=== PATIENT | female | born 1940 | race Caucasian/White ===

== ENCOUNTER 2020-05-14 02:00 | Emergency (ER) | payer MEDICARE, OTHER ==
[~2020-05-14] VITALS: Ht 165.1 cm; Wt 71.5 kg
--- NOTE | 2020-05-14 02:08 | NUR ---
This RN contacted Catherine at the [facility] [place] for report. She stated the pt contacted her saying she wasnt "feeling well". She assessed the pt stating she was pale, cool and clammy with c/o dizziness. Upon taking her vital signs she obtained a 202/104 pressure.
--- NOTE | 2020-05-14 02:12 | ED General ---
General Stated Complaint: HIGH BLOOD PRESSURE Source of Information: Patient, EMS, [facility] Records, RN/MD Exam Limitations: No Limitations History of Present Illness Date Seen by Provider: May 14, 2020 Time Seen by Provider: 02:00 Initial Comments This patient is a 67-year-old female presents to the emerge department from EMS [facility] jail with complaint of high blood pressure. Patient states that she has no complaints. Patient states that she was laying in the bed but is having a hard time sleeping. EMS reports that they got a call stating the patient at high blood pressure. EMS reportedly had checked the patient's blood pressure twice and got 150s over 80s both times. Patient has normal blood pressures for her stated history and age. Patient was presented to the emergency department blood pressures again stable and similar range 156/63. Patient has no complaints of pain and no complaints of anything other than the fact that she stated she just was having a hard time going to sleep. We did discuss at length with options patient is a negative medical screening exam for any acute complaint. Nursing staff will call jail to ask the patient has any sleep aids to assist with going sleep for her MAR. Patient has no complaints she was offered a medical screening exam but declines because she has no complaints. Patient be transported back to the long term per her request. Associated Systoms: Denies Symptoms Allergies and Home Medications Patient Home Medication List Home Medication List Reviewed: Yes Review of Systems Review of Systems Constitutional: see HPI EENTM: No see HPI, No no symptoms reported, No ear discharge, No hearing loss, No ear pain, No blurred vision, No double vision, No eye pain, No tearing, No vision loss, No dental problems, No hoarseness, No mouth pain, No mouth swelling, No epistaxis, No nose congestion, No nose pain, No throat pain, No throat swelling, No other Respiratory: No no symptoms reported, No see HPI, No cough, No dyspnea on exertion, No hemoptysis, No orthopnea, No phlegm, No short of breath, No stridor, No wheezing, No other Cardiovascular: No no symptoms reported, No see HPI, No chest pain, No edema, No Hx of Intervention, No palpitations, No syncope, No vascular heart diseas, No other Gastrointestinal: No RUQ, No LUQ, No RLQ, No LLQ, No no symptoms reported, No see HPI, No abdominal pain, No constipation, No diarrhea, No dysphagia, No hematemesis, No heartburn, No jaundice, No loss of appetite, No melena, No nausea, No vomiting, No other Genitourinary: No no symptoms reported, No see HPI, No decreased output, No discharge, No dysuria, No frequency, No hematuria, No hesitancy, No incontinence, No nocturia, No pain, No other Musculoskeletal: No no symptoms reported, No see HPI, No back pain, No gout, No joint pain, No joint swelling, No muscle pain, No muscle stiffness, No muscle cramps, No muscle twitching, No muscle weakness, No neck pain, No other Skin: No no symptoms reported, No see HPI, No change in color, No change in alfonso ir/nails, No dryness, No hx of skin cancer, No lesions, No lumps, No pruritus, No rash, No other Psychiatric/Neurological: Denies No Symptoms Reported, Denies See HPI, Denies Anxiety, Denies Depressed, Denies Emotional Problems, Denies Headache, Denies Numbness, Denies Paresthesia, Denies Pre-Existing Deficit, Denies Seizure, Denies Tingling, Denies Tremors, Denies Weakness, Denies Other Hematologic/Lymphatic: Denies No Symptoms Reported, Denies See HPI, Denies An emia, Denies Blood Clots, Denies Easy Bleeding, Denies Easy Bruising, Denies Swollen Glands, Denies Other Immunological/Allergic: denies no symptoms reported, denies see HPI, denies food allergy, denies grass allergy, denies mold allergy, denies pollen allergy, denies HIV/AIDS, denies transplant All Other Systems Reviewed Negative Unless Noted: Yes Physical Exam Vital Signs Capillary Refill : Height, Weight, BMI Height: '" Weight: lbs. oz. kg; BMI Method: General Appearance: No Apparent Distress, WD/WN Respiratory: Chest Non Tender, Lungs Clear, Normal Breath Sounds, No Accessory Muscle Use, No Respiratory Distress Cardiovascular: Regular Rate, Rhythm, No Edema, No Gallop, No JVD, No Murmur, Normal Peripheral Pulses Gastrointestinal: Normal Bowel Sounds, No Organomegaly, No Pulsatile Mass, Non Tender, Soft Neurologic/Psychiatric: Alert, Oriented x3, No Motor/Sensory Deficits, Normal Mood/Affect Progress/Results/Core Measures Suspected Sepsis SIRS Temperature: Pulse: Respiratory Rate: Blood Pressure / Mean: Results/Orders Vital Signs/I&O Capillary Refill : Progress Note : Time: 02:09 Progress Note Negative evaluation in the emergency Department patient has no complaints. Vital signs patient's blood pressure is 157/68 pulse 66 this is normal for the patient on arrival. After monitoring the patient's blood pressure went down to 142/69.. Patient's only complaint in the emergency department states she was having problems sleeping. Patient MEDICAL screening exam but declined states that she has no complaints. Patient does have a history of dementia. Myself and nursing staff did discuss at length with patient's family members. They agreed to have no further medical screening exam in the emergency department. They were advised the patient stated that she had complained sleeping tonight and they did request that we give her a Benadryl prior to sending back to the jail to help her sleep. We did review patient's medications. Patient does take trazodone and melatonin according to her medical records. But unknown if the patient has at least. Patient will be discharged back to the jail per her and family request. long term to continue patient's medications as scheduled. Follow-up with primary care physician or jail physician in one to 2 days as needed. Departure Impression Primary Impression: Encounter for medical screening examination Disposition: HOME, SELF-CARE Condition: Stable Departure-Patient Inst. Decision time for Depature: 02:15 Add. Discharge Instructions: long term to continue patient's medications as scheduled. Follow-up with primary care physician or jail physician in one to 2 days as needed. MONICA VARMA MD May 14, 2020 02:11
--- NOTE | 2020-05-14 02:15 | NUR ---
This RN contacted Neftali, the pts son. Update given on the pt. He denies wanting any medical workup on the pt including bloodwork since the pt has no complaints. Pt did state she was having trouble sleeping and that was relayed to Neftali. Dr. Lindsey offered Benedryl as sleep aid. Neftali stated that would be great.
--- NOTE | 2020-05-14 02:21 | NUR ---
This RN contacted Catherine at nursing facility again stating what [place] wishes were and that the pt would need transport back home. She stated she would send someone for transport home.
[2020-05-14] MEDS ORDERED: diphenhydrAMINE 25 MG TAB (BENADRYL) PO ONE (02:30)
--- NOTE | 2020-05-14 02:37 | NUR ---
Pt transport here to [facility] the pt.
[2020-05-14 02:42] VITALS: BP 157/68
== END 2020-05-14 02:42 | disposition home or self-care (01) ==
LOC: EDBD 02:00 → ER FS 02:00
DX: Z03.89 Encounter for observation for other suspected diseases and conditions ruled out (principal)
CPT/HCPCS: 99283

== ENCOUNTER 2020-05-14 20:49 | Emergency (ER) | payer MEDICARE, OTHER ==
[~2020-05-14] VITALS: Ht 165.1 cm; Wt 70.0 kg
--- NOTE | 2020-05-14 21:03 | ED Cardiac General ---
History of Present Illness General Chief Complaint: Cardiac/General Problems Stated Complaint: HYPERTENSION Nursing Triage Note: Patient was seen in the ER last night for the same complaint. Patients medications were changed today by her physician. Patients vitals were taken and it was reported that her blood pressure was high. Patient is brought in via EMS. Patient has a 20g in her right AC and was given 4mg of Zofran. Patient has no complaints at this time. Source: patient, EMS Exam Limitations: no limitations History of Present Illness Date Seen by Provider: May 14, 2020 Time Seen by Provider: 20:50 Initial Comments The patient is an 79-year-old female who presents for evaluation of hypertension. She was in this emergency department last night for the same complaint and she had a change made to her blood pressure medications. She states that she has felt fatigued for 3 or 4 days. She was slightly nauseated and EMS gave her some Zofran prior to arrival and now she has no complaints. Her blood pressure upon arrival is 158/97. She is alert and oriented 4, calm, and appears to be in no distress this time. Severity: mild Associated Systoms: Nausea/Vomiting (mild nausea, resolved) Allergies and Home Medications Allergies Coded Allergies: No Known Drug Allergies (Unverified , 05/14/20) Patient Home Medication List Home Medication List Reviewed: Yes Review of Systems Review of Systems Constitutional: no symptoms reported EENTM: No Symptoms Reported Respiratory: No Symptoms Reported Cardiovascular: No Symptoms Reported Gastrointestinal: Nausea Genitourinary: No Symptoms Reported Musculoskeletal: no symptoms reported Skin: no symptoms reported Psychiatric/Neurological: No Symptoms Reported Endocrine: No Symptoms Reported Hematologic/Lymphatic: No Symptoms Reported All Other Systems Reviewed Negative Unless Noted: Yes Past Ltcucwa-Rzfvjw-Bqhnqv Hx Past Med/Social Hx: Reviewed Nursing Past Med/Soc Hx Patient Social History 2nd Hand Smoke Exposure: No Recent Foreign Travel: No Contact w/Someone Who Travel: No Recent Infectious Disease Expo: No Recent Hopitalizations: No Seasonal Allergies Seasonal Allergies: No Past Medical History Surgeries: No Respiratory: No Cardiac: No Neurological: No Genitourinary: No Gastrointestinal: No Musculoskeletal: No Endocrine: No HEENT: No Cancer: No Psychosocial: No Integumentary: No Blood Disorders: No Physical Exam Vital Signs Vital Signs - First Documented 05/14/20 20:54 Temp 36.8 Pulse 72 Resp 18 B/P (MAP) 158/76 (103) Pulse Ox 100 O2 Delivery Room Air Capillary Refill : Less Than 3 Seconds Height, Weight, BMI Height: '" Weight: lbs. oz. kg; 25.00 BMI Method: General Appearance: No Apparent Distress, WD/WN HEENT: PERRL/EOMI, Normal ENT Inspection Neck: Full Range of Motion, Normal Inspection, Non Tender, Supple Respiratory: Lungs Clear, Normal Breath Sounds, No Respiratory Distress Cardiovascular: Regular Rate, Rhythm, No Edema, No JVD, No Murmur Gastrointestinal: Normal Bowel Sounds, Non Tender, Soft Extremity: Normal Capillary Refill, Normal Inspection, Normal Range of Motion, Non Tender Neurologic/Psychiatric: Alert, Oriented x3, No Motor/Sensory Deficits, Normal Mood/Affect Skin: Normal Color, Warm/Dry Progress/Results/Core Measures Results/Orders Lab Results Laboratory Tests Test 05/14/20 21:16 Range/Units White Blood Count 8.5 4.3-11.0 10^3/uL Red Blood Count 4.55 4.35-5.85 10^6/uL Hemoglobin 13.8 11.5-16.0 G/DL Hematocrit 41 35-52 % Mean Corpuscular Volume 89 80-99 FL Mean Corpuscular Hemoglobin 30 25-34 PG Mean Corpuscular Hemoglobin Concent 34 32-36 G/DL Red Cell Distribution Width 12.7 10.0-14.5 % Platelet Count 209 130-400 10^3/uL Mean Platelet Volume 9.9 7.4-10.4 FL Neutrophils (%) (Auto) 81 H 42-75 % Lymphocytes (%) (Auto) 13 12-44 % Monocytes (%) (Auto) 5 0-12 % Eosinophils (%) (Auto) 1 0-10 % Basophils (%) (Auto) 0 0-10 % Neutrophils # (Auto) 6.9 1.8-7.8 X 10^3 Lymphocytes # (Auto) 1.1 1.0-4.0 X 10^3 Monocytes # (Auto) 0.5 0.0-1.0 X 10^3 Eosinophils # (Auto) 0.1 0.0-0.3 10^3/uL Basophils # (Auto) 0.0 0.0-0.1 10^3/uL Sodium Level 139 135-145 MMOL/L Potassium Level 3.7 3.6-5.0 MMOL/L Chloride Level 103 98-107 MMOL/L Carbon Dioxide Level 23 21-32 MMOL/L Anion Gap 13 5-14 MMOL/L Blood Urea Nitrogen 12 7-18 MG/DL Creatinine 0.73 0.60-1.30 MG/DL Estimat Glomerular Filtration Rate > 60 BUN/Creatinine Ratio 16 Glucose Level 153 H 70-105 MG/DL Calcium Level 9.8 8.5-10.1 MG/DL Corrected Calcium 9.7 8.5-10.1 MG/DL Total Bilirubin 0.3 0.1-1.0 MG/DL Aspartate Amino Transf (AST/SGOT) 30 5-34 U/L Alanine Aminotransferase (ALT/SGPT) 24 0-55 U/L Alkaline Phosphatase 119 40-136 U/L Troponin I < 0.30 <0.30 NG/ML Pro-B-Type Natriuretic Peptide 876.2 H <75.0 PG/ML Total Protein 7.0 6.4-8.2 GM/DL Albumin 4.1 3.2-4.5 GM/DL My Orders Orders - SARA SOLARES DO Ekg Tracing (05/14/20 20:57) Cbc With Automated Diff (05/14/20 21:10) Comprehensive Metabolic Panel (05/14/20 21:10) Troponin I Fs (05/14/20 21:10) Probnp Fs (05/14/20 21:10) Vital Signs/I&O 05/14/20 20:54 Temp 36.8 Pulse 72 Resp 18 B/P (MAP) 158/76 (103) Pulse Ox 100 O2 Delivery Room Air Blood Pressure Mean: 103 Progress Progress Note : Progress Note @2158 - patient updated on lab results which are acutely unremarkable. The patient's blood pressure is not at a dangerous level currently. Advised her to follow up with her PCP in the next 1-2 days and to return to the emergency Department immediately for new or worsening symptoms. The patient expresses verbal understanding and agreement with the plan and is stable for discharge. Comment @2101 - normal sinus rhythm, rate of 65, left axis deviation, no acute ischemic findings noted, no STEMI, reviewed and interpreted by myself Departure Impression Primary Impression: Hypertension Disposition: 01 HOME, SELF-CARE Condition: Stable Departure-Patient Inst. Decision time for Depature: 21:59 Referrals: SELF,REINA JOYCE (PCP/Family) Primary Care Physician Patient Instructions: High Blood Pressure in Adults Add. Discharge Instructions: Continue to take your home medications as directed. Follow-up with your doctor tomorrow. Return to the emergency Department immediately for new or worsening symptoms. SARA SOLARES DO May 14, 2020 21:03
[2020-05-14 21:23] LABS: HEMATOCRIT 41 % (35-52); HEMOGLOBIN 13.8 G/DL (11.5-16.0); MEAN CORPUSCULAR HEMOGLOBIN 30 PG (25-34); MEAN CORPUSCULAR HGB CONC 34 G/DL (32-36); MEAN CORPUSCULAR VOLUME 89 FL (80-99); PLATELET COUNT 209 10^3/uL (130-400); WHITE BLOOD COUNT 8.5 10^3/uL (4.3-11.0)
[2020-05-14 21:24] LABS: BASOPHILS % (AUTO) 0 % (0-10); EOSINOPHILS # (AUTO) 0.1 10^3/uL (0.0-0.3); EOSINOPHILS % (AUTO) 1 % (0-10); LYMPHOCYTES # (AUTO) 1.1 X 10^3 (1.0-4.0); LYMPHOCYTES % (AUTO) 13 % (12-44); MEAN PLATELET VOLUME 9.9 FL (7.4-10.4); MONOCYTES # (AUTO) 0.5 X 10^3 (0.0-1.0); MONOCYTES % (AUTO) 5 % (0-12); NEUTROPHILS # (AUTO) 6.9 X 10^3 (1.8-7.8); NEUTROPHILS % (AUTO) 81 % (42-75)
[2020-05-14 21:54] LABS: ALANINE AMINOTRANSFERASE 24 U/L (0-55); ALKALINE PHOSPHATASE 119 U/L (40-136); BILIRUBIN,TOTAL 0.3 MG/DL (0.1-1.0); BUN/CREATININE RATIO 16; CALCIUM 9.8 MG/DL (8.5-10.1); CARBON DIOXIDE 23 MMOL/L (21-32); CHLORIDE 103 MMOL/L (98-107); CREATININE SERUM 0.73 MG/DL (0.60-1.30); GFR ESTIMATED > 60; GLUCOSE 153 MG/DL (70-105); POTASSIUM 3.7 MMOL/L (3.6-5.0); SODIUM 139 MMOL/L (135-145)
[2020-05-14 21:55] LABS: ALBUMIN 4.1 GM/DL (3.2-4.5)
[2020-05-14 22:03] VITALS: BP 156/76
== END 2020-05-14 22:03 | disposition home or self-care (01) ==
LOC: EDUNIT# 20:49 → ER FS 20:50
DX: I10 Essential (primary) hypertension (principal)
CPT/HCPCS: 36415; 80053; 83880; 84484; 85025; 93005

== ENCOUNTER 2022-03-06 12:56 | Emergency (ER) | payer MEDICARE ==
[~2022-03-06] VITALS: Ht 165.1 cm; Wt 68.0 kg
--- NOTE | 2022-03-06 13:00 | ED General ---
General Stated Complaint: SHOULDER PAIN History of Present Illness Date Seen by Provider: Mar 06, 2022 Time Seen by Provider: 13:00 Initial Comments 81-year-old female sent in from [facility]. Patient had a unwitnessed fall. She complains of some minor shoulder pain but no other complaints. Patient does not remember what happened. Patient is unsure if she hit her head. Patient has known history of dementia and memory issues and difficult to obtain any further HPI. This resulted very limited HPI Allergies and Home Medications Allergies Coded Allergies: No Known Drug Allergies (Unverified , 05/14/20) Patient Home Medication List Home Medication List Reviewed: Yes Review of Systems Review of Systems Constitutional: no symptoms reported EENTM: no symptoms reported Respiratory: no symptoms reported Cardiovascular: no symptoms reported Genitourinary: no symptoms reported Musculoskeletal: see HPI Skin: no symptoms reported Psychiatric/Neurological: No Symptoms Reported Past Boawhwd-Qvllgo-Mtehoa Hx Seasonal Allergies Seasonal Allergies: No Past Medical History Surgeries: No Respiratory: No Cardiac: No Neurological: No Genitourinary: No Gastrointestinal: No Musculoskeletal: No Endocrine: No HEENT: No Cancer: No Psychosocial: No Integumentary: No Blood Disorders: No Physical Exam Vital Signs Vital Signs - First Documented 03/06/22 12:56 Temp 36.1 Pulse 67 Resp 17 B/P (MAP) 155/67 (96) O2 Delivery Room Air Capillary Refill : Height, Weight, BMI Height: '" Weight: lbs. oz. kg; 25.00 BMI Method: General Appearance: No Apparent Distress, WD/WN HEENT: PERRL/EOMI, Normal ENT Inspection Neck: Normal Inspection, Non Tender Respiratory: Lungs Clear Cardiovascular: Regular Rate, Rhythm, No Edema Gastrointestinal: Non Tender, Soft Extremity: Normal Capillary Refill, Normal Inspection, Normal Range of Motion, Non Tender Neurologic/Psychiatric: Alert, No Motor/Sensory Deficits, Normal Mood/Affect, buffet runner II-XII Norm as Tested, Other (Orientated to name, age. Unsure of place and why she is here) Progress/Results/Core Measures Suspected Sepsis SIRS Temperature: Pulse: Respiratory Rate: Laboratory Tests 03/06/22 13:00: White Blood Count 7.0 Blood Pressure / Mean: Laboratory Tests 03/06/22 13:00: Creatinine 0.80, Platelet Count 134, Total Bilirubin 0.4 Results/Orders Lab Results Laboratory Tests Test 03/06/22 13:00 03/06/22 14:02 Range/Units White Blood Count 7.0 4.3-11.0 10^3/uL Red Blood Count 4.11 3.80-5.11 10^6/uL Hemoglobin 12.4 11.5-16.0 g/dL Hematocrit 38 35-52 % Mean Corpuscular Volume 93 80-99 fL Mean Corpuscular Hemoglobin 30 25-34 pg Mean Corpuscular Hemoglobin Concent 33 32-36 g/dL Red Cell Distribution Width 12.8 10.0-14.5 % Platelet Count 134 130-400 10^3/uL Mean Platelet Volume 10.3 9.0-12.2 fL Immature Granulocyte % (Auto) 0 % Neutrophils (%) (Auto) 70 42-75 % Lymphocytes (%) (Auto) 19 12-44 % Monocytes (%) (Auto) 6 0-12 % Eosinophils (%) (Auto) 4 0-10 % Basophils (%) (Auto) 0 0-10 % Neutrophils # (Auto) 4.9 1.8-7.8 10^3/uL Lymphocytes # (Auto) 1.4 1.0-4.0 10^3/uL Monocytes # (Auto) 0.4 0.0-1.0 10^3/uL Eosinophils # (Auto) 0.3 0.0-0.3 10^3/uL Basophils # (Auto) 0.0 0.0-0.1 10^3/uL Immature Granulocyte # (Auto) 0.0 0.0-0.1 10^3/uL Sodium Level 140 135-145 MMOL/L Potassium Level 4.0 3.6-5.0 MMOL/L Chloride Level 105 98-107 MMOL/L Carbon Dioxide Level 22 21-32 MMOL/L Anion Gap 13 5-14 MMOL/L Blood Urea Nitrogen 18 7-18 MG/DL Creatinine 0.80 0.60-1.30 MG/DL Estimat Glomerular Filtration Rate 73 BUN/Creatinine Ratio 23 Glucose Level 167 H 70-105 MG/DL Calcium Level 9.1 8.5-10.1 MG/DL Corrected Calcium 9.2 8.5-10.1 MG/DL Total Bilirubin 0.4 0.1-1.0 MG/DL Aspartate Amino Transf (AST/SGOT) 22 5-34 U/L Alanine Aminotransferase (ALT/SGPT) 12 0-55 U/L Alkaline Phosphatase 93 40-136 U/L Troponin I < 0.30 <0.30 NG/ML Total Protein 6.3 L 6.4-8.2 GM/DL Albumin 3.9 3.2-4.5 GM/DL Urine Color YELLOW Urine Clarity CLOUDY Urine pH 7.5 5-9 Urine Specific [place] 1.020 1.016-1.022 Urine Protein NEGATIVE NEGATIVE Urine Glucose (UA) NEGATIVE NEGATIVE Urine Ketones 1+ H NEGATIVE Urine Nitrite NEGATIVE NEGATIVE Urine Bilirubin NEGATIVE NEGATIVE Urine Urobilinogen 0.2 < = 1.0 MG/DL Urine Leukocyte Esterase TRACE H NEGATIVE Urine RBC (Auto) NEGATIVE NEGATIVE Urine RBC NONE /HPF Urine WBC 25-50 H /HPF Urine Squamous Epithelial Cells 5-10 /HPF Urine Crystals NONE /LPF Urine Bacteria LARGE H /HPF Urine Casts NONE /LPF Urine Mucus NEGATIVE /LPF Urine Culture Indicated YES My Orders Orders - CISSE,BAN L DO Ct Head Wo (03/06/22 13:03) Cbc With Automated Diff (03/06/22 13:03) Comprehensive Metabolic Panel (03/06/22 13:03) Ua Culture If Indicated (03/06/22 13:03) Troponin I Fs (03/06/22 13:03) Ekg Tracing (03/06/22 13:03) Monitor-Rhythm Ecg Trace Only (03/06/22 13:03) Shoulder 2 View Right (03/06/22 13:29) Ed Iv/Invasive Line Start (03/06/22 14:08) Ns Iv 500 Ml (Sodium Chloride 0.9%) (03/06/22 14:15) Urine Culture (03/06/22 14:02) Ceftriaxone 1 Gm Pre-Mix (Rocephin 1 Gm (03/06/22 14:22) Medications Given in ED Current Medications Medications Dose Ordered Sig/Vicky Route Start Time Stop Time Status Last Admin Dose Admin Sodium Chloride 500 ml @ 0 mls/hr Q0M ONCE IV 03/06/22 14:15 03/06/22 14:16 DC 03/06/22 14:12 999 MLS/HR Vital Signs/I&O 03/06/22 03/06/22 03/06/22 12:56 14:10 14:11 Temp 36.1 Pulse 67 73 73 66 67 Resp 17 B/P (MAP) 155/67 (96) 200/80 (120) 200/80 (120) 178/90 (119) 168/63 (98) O2 Delivery Room Air Capillary Refill : ECG Initial ECG Impression Date: Mar 06, 2022 Initial ECG Impression Time: 13:12 Initial ECG Rate: 63 Initial ECG Rhythm: Normal Sinus, PVC Initial ECG Impression: Nonspecific Changes Comment no st elevation or acute changes Diagnostic Imaging Diagonstic Imaging: CT Plain Films/CT/US/NM/MRI: head Comments Date of Exam:03/06/22 CT HEAD WO Procedure: CT head without contrast. Technique: Multiple contiguous axial images were obtained through the brain without the use of intravenous contrast. Auto Exposure Controls were utilized during the CT exam to meet ALARA standards for radiation dose reduction. Indication: Followup syncope, fall. Comparison: None. Discussion: Mild diffuse brain volume loss is likely age related. White matter hypoattenuation is nonspecific though not greater than expected for age-related chronic small vessel ischemic disease. No acute intracranial hemorrhage, mass, midline shift, hydrocephalus. The orbits, sinuses, mastoid air cells, and calvarium are unremarkable. Impression: 1. Senescent changes as described. No acute intracranial abnormality identified. Reviewed: Reviewed by Me, Reviewed/Discussed Diagonstic Imaging: Xray Plain Films/CT/US/NM/MRI: other Comments Date of Exam:03/06/22 SHOULDER 2 VIEW RIGHT Indication: Right shoulder pain. Comparison: None. Discussion: Two views of the right shoulder were obtained. Advanced degenerative disease is noted with joint space narrowing or marginal osteophyte formation. No fracture or dislocation. Soft tissues are unremarkable. Impression: 1. Advanced right shoulder degenerative joint disease. Departure Impression Primary Impression: Acute cystitis Qualified Codes: N30.00 - Acute cystitis without hematuria Additional Impression: Fall Qualified Codes: W19.XXXA - Unspecified fall, initial encounter Disposition: HOME, SELF-CARE Condition: Stable Departure-Patient Inst. Referrals: REINA MOISE MD (PCP) Primary Care Physician Patient Instructions: Preventing Falls in Older Adults, Urinary Tract Infection, Adult ED Add. Discharge Instructions: Drink plenty of fluids Follow-up with a primary care provider and 5 to 6 days for recheck of urinalysis Return to ER with worsening of symptoms Scripts Cephalexin (Cephalexin) 500 Mg Tablet 500 MG PO QID, #20 TAB 0 Refills Prov: BAN CISSE DO 03/06/22 BAN CISSE DO Mar 06, 2022 13:00
[2022-03-06 13:13] LABS: BASOPHILS % (AUTO) 0 % (0-10); EOSINOPHILS # (AUTO) 0.3 10^3/uL (0.0-0.3); EOSINOPHILS % (AUTO) 4 % (0-10); HEMATOCRIT 38 % (35-52); HEMOGLOBIN 12.4 g/dL (11.5-16.0); LYMPHOCYTES # (AUTO) 1.4 10^3/uL (1.0-4.0); LYMPHOCYTES % (AUTO) 19 % (12-44); MEAN CORPUSCULAR HEMOGLOBIN 30 pg (25-34); MEAN CORPUSCULAR HGB CONC 33 g/dL (32-36); MEAN CORPUSCULAR VOLUME 93 fL (80-99); MEAN PLATELET VOLUME 10.3 fL (9.0-12.2); MONOCYTES # (AUTO) 0.4 10^3/uL (0.0-1.0); MONOCYTES % (AUTO) 6 % (0-12); NEUTROPHILS # (AUTO) 4.9 10^3/uL (1.8-7.8); NEUTROPHILS % (AUTO) 70 % (42-75); PLATELET COUNT 134 10^3/uL (130-400)
--- NOTE | 2022-03-06 13:26 | Diagnostic Imaging Report ---
Procedure: CT head without contrast. Technique: Multiple contiguous axial images were obtained through the brain without the use of intravenous contrast. Auto Exposure Controls were utilized during the CT exam to meet ALARA standards for radiation dose reduction. Indication: Followup syncope, fall. Comparison: None. Discussion: Mild diffuse brain volume loss is likely age related. White matter hypoattenuation is nonspecific though not greater than expected for age-related chronic small vessel ischemic disease. No acute intracranial hemorrhage, mass, midline shift, hydrocephalus. The orbits, sinuses, mastoid air cells, and calvarium are unremarkable. Impression: 1. Senescent changes as described. No acute intracranial abnormality identified. Dictated by: Dictated on workstation # [id number]
[2022-03-06 13:38] LABS: ALANINE AMINOTRANSFERASE 12 U/L (0-55); ALBUMIN 3.9 GM/DL (3.2-4.5); ALKALINE PHOSPHATASE 93 U/L (40-136); BILIRUBIN,TOTAL 0.4 MG/DL (0.1-1.0); BUN/CREATININE RATIO 23; CALCIUM 9.1 MG/DL (8.5-10.1); CARBON DIOXIDE 22 MMOL/L (21-32); CHLORIDE 105 MMOL/L (98-107); GFR ESTIMATED 73; GLUCOSE 167 MG/DL (70-105); SODIUM 140 MMOL/L (135-145); TOTAL PROTEIN 6.3 GM/DL (6.4-8.2)
--- NOTE | 2022-03-06 13:42 | Diagnostic Imaging Report ---
Indication: Right shoulder pain. Comparison: None. Discussion: Two views of the right shoulder were obtained. Advanced degenerative disease is noted with joint space narrowing or marginal osteophyte formation. No fracture or dislocation. Soft tissues are unremarkable. Impression: 1. Advanced right shoulder degenerative joint disease. Dictated by: Dictated on workstation # [id number]
[2022-03-06 14:07] LABS: BILIRUBIN,URINE NEGATIVE (NEGATIVE); COLOR,URINE YELLOW; GLUCOSE, URINE (UA) NEGATIVE (NEGATIVE); KETONES,URINE 1+ (NEGATIVE); LEUKOCYTE ESTERASE ,URINE TRACE (NEGATIVE); NITRITE,URINE NEGATIVE (NEGATIVE); PH,URINE 7.5 (5-9); PROTEIN,URINE NEGATIVE (NEGATIVE)
[2022-03-06 14:10] VITALS: BP 200/80
[2022-03-06 14:11] VITALS: BP_SYST 168; BP_SYST 178; BP_SYST 200; BP_DIAS 63; BP_DIAS 80; BP_DIAS 90
[2022-03-06 14:11] LABS: BACTERIA,URINE LARGE /HPF; CLARITY,URINE CLOUDY; WBC,URINE 25-50 /HPF
[2022-03-06] MEDS ORDERED: NS IV 500 ML 500 ML IV ONE (14:15)
[2022-03-06] MEDS ORDERED: cefTRIAXone 1 GM PRE-MIX 50 ML IV STA (14:22)
[2022-03-06] MEDS ORDERED: CEPH500T PO (14:30)
[2022-03-06 15:00] VITALS: BP 150/72
== END 2022-03-06 15:00 | disposition home or self-care (01) ==
LOC: EDUNIT# 12:56 → ER FS 12:58
DX: M25.511 Pain in right shoulder (principal); N30.00 Acute cystitis without hematuria; W19.XXXA Unspecified fall, initial encounter; Y92.199 Unspecified place in other specified residential institution as the place of occurrence of the external cause
CPT/HCPCS: 36415; 70450; 73030; 80053; 81000; 84484; 85025; 87088; 93005; 93041

== ENCOUNTER 2023-02-15 21:19 | Emergency (ER) | payer MEDICARE ==
[~2023-02-15] VITALS: Ht 165 cm; Wt 63.0 kg
[~2023-02-15 21:19] MED LIST: CEPH500T PO
[2023-02-15 21:25] VITALS: BP 143/90
[2023-02-15] MEDS ORDERED: RX-NEO/POLYB/HC OTIC (CORTISPORIN) SUSP 10 ML BTL OT STA (21:36)
--- NOTE | 2023-02-15 21:41 | ED EENT ---
History of Present Illness General Chief Complaint: Ear Problems Stated Complaint: EARS BLEEDING Nursing Triage Note: Pt presents with c/o bleeding from L ear that started around 1800 tonight and has been off and on. She denies trauma to ear canal. Source: patient, family Exam Limitations: no limitations History of Present Illness Date Seen by Provider: Feb 15, 2023 Time Seen by Provider: 21:22 Initial Comments 82-year-old female coming in due to bleeding from her left ear. She noticed that around 6 PM tonight and has been happening off and on. Initially denied any trauma to her ear from Q-tips, but does endorse using Gene pins in her ear to get wax out, and did this earlier today. She also has dementia and does tend to forget things. Does not take any blood thinners. Is not having any pain associated with it. Allergies and Home Medications Allergies Coded Allergies: No Known Drug Allergies (Unverified , 05/14/20) Patient Home Medication List Home Medication List Reviewed: Yes Cephalexin (Cephalexin) 500 Mg Tablet, 500 MG PO QID Prescribed by: BAN CISSE on 03/06/22 1430 Review of Systems Review of Systems Constitutional: No fever Eyes: No Symptoms Reported Ears: See HPI Nose: no symptoms reported Mouth: no symptoms reported Throat: no symptoms reported Respiratory: no symptoms reported Cardiovascular: no symptoms reported Past Qrnyzsv-Uoovsi-Duvpud Hx Patient Social History Tobacco Use?: No Immunizations Up To Date Influenza Vaccine Up-to-Date: Yes; Up-to-Date Seasonal Allergies Seasonal Allergies: No Past Medical History Surgeries: No Respiratory: No Cardiac: No Neurological: No Genitourinary: No Gastrointestinal: No Musculoskeletal: No Endocrine: No HEENT: No Cancer: No Psychosocial: No Integumentary: No Blood Disorders: No Physical Exam Vital Signs Vital Signs - First Documented 02/15/23 21:25 Temp 37.4 Pulse 69 Resp 16 B/P (MAP) 143/90 (107) Height, Weight, BMI Height: '" Weight: lbs. oz. kg; 23.00 BMI Method: General Appearance: WD/WN, no apparent distress Eyes: bilateral eye normal inspection Ears: right ear canal normal; left ear bleeding, left ear other (Tympanic membrane is intact and normal appearing, there are excoriations in the canal with blood clots that were pulled out); bilateral ear auricle normal, bilateral ear TM normal Nose: normal inspection Mouth/Throat: normal mouth inspection, pharynx normal Neck: non-tender, full range of motion, supple, normal inspection Skin: normal color, warm/dry Progress/Results/Core Measures Results/Orders My Orders Orders - JHONY LINCOLN MD Rx-Clinton/Poly/Hc Otic Susp (Rx-Cortisporin (02/15/23 21:36) Dipht,Pertuss(Acell),Tet Adult (Boostrix (02/15/23 21:45) Vital Signs/I&O 02/15/23 21:25 Temp 37.4 Pulse 69 Resp 16 B/P (MAP) 143/90 (107) Blood Pressure Mean: 107 Progress Progress Note : Progress Note 82-year-old female presenting due to bleeding from her left ear after trauma from a Gene pin. ABCs were intact and vitals were stable on presentation. I was able to remove a lot of blood to fully visualize her tympanic membrane which is intact. There are excoriations that are obvious from the metal pin that she put into her ear. We will give her antibiotic drops here to go home with. I believe she is otherwise stable for discharge with outpatient follow-up. She was sent home with strict return precautions. Tetanus updated today. Departure Impression Primary Impression: Trauma of ear canal Qualified Codes: S09.91XA - Unspecified injury of ear, initial encounter Disposition: 01 HOME, SELF-CARE Condition: Stable Departure-Patient Inst. Decision time for Depature: 21:45 Referrals: YAQUELIN ENGLAND MD SELFREINA MD (PCP/Family) Primary Care Physician Patient Instructions: How to Use Ear Drops Add. Discharge Instructions: This looks like it was caused by trauma to your ear. Please do not stick anything in your ear canals. You can use a towel to clean the outside of your ear and just inside of it. If you need your earwax cleaned out, please follow- up with Dr. England. It will be normal for it to continue to bleed for a day or so but it should slow down. You can put a small amount of cotton in your ear after the antibiotic drops if you would like to prevent the bleeding from going down your face or onto your pillow. If the bleeding does not stop after couple days, please schedule an appointment with Dr. England for this. You will use the antibiotic drops 4 times a day for the next 7 days. JHONY LINCOLN MD Feb 15, 2023 21:41
[2023-02-15] MEDS ORDERED: TETANUS,DIPTH,PERTUSS P/F (BOOSTRIX) 0.5 ML VIAL IM ONE (21:45)
== END 2023-02-15 21:55 | disposition home or self-care (01) ==
LOC: EDUNIT# 21:19 → ER FS 21:21
DX: S09.91XA Unspecified injury of ear, initial encounter (principal); Z23 Encounter for immunization; X58.XXXA Exposure to other specified factors, initial encounter
CPT/HCPCS: 90715; 99282